=== PATIENT | female | born 1990 | race Caucasian/White ===

== ENCOUNTER 2020-04-11 19:46 | Emergency (ER) | payer OTHER, MEDICAID, SELFPAY ==
[2020-04-11 19:52] VITALS: BP 158/101; PULSE 92; RESP 18; TEMP 36.6; O2SAT 100; BMI 32.9
--- NOTE | 2020-04-11 20:03 | ED_ITS ---
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 Patient reports subjective fever and chills with occasional nausea and had 2 episodes of vomiting yesterday. Patient has been having epigastric discomfort on and off for a while. Patient reports nausea increases after eating. Patient reports foul-smelling belching associated with her abdominal discomfort. Patient has history of cholecystectomy in the past and had gastric ulcer during high school. Patient denies chest pain, breathing difficulty, known exposure to Covid. LMP 03/18/20. Complaint: tooth pain Related Data Previous Rx's Medication Instructions Recorded amoxicillin-pot clavulanate 1 tab PO BID 7 Days #14 tab 04/11/20 [Augmentin] ondansetron 4 mg PO BID-TID PRN #7 tab 04/11/20 Allergies Allergy/AdvReac Type Severity Reaction Status Date / Time No Known Drug Allergies Allergy Verified 04/11/20 19:52 Review of Systems <GRACE Gallegos - Last Filed: 04/11/20 22:17> Review of Systems Narrative: General: See HPI HEENT: See HPI Respiratory: Denies dyspnea, cough, wheezing, hemoptysis, sputum. Cardiovascular: Denies chest pain, palpitations, orthopnea, edema. Gastrointestinal: HPI Neurologic: Denies weakness, headache, numbness, change in speech, confusion, seizures, incoordination. Psychiatric: No concerning psychosocial issues. Patient History <GRACE Gallegos - Last Filed: 04/11/20 22:17> Surgical History History of ankle surgery (Acute) Hx of cholecystectomy (Acute) Social History Smoking Status: Current every day smoker Smoking Status: Current every day smoker Substance Use Type: heroin and IV drugs Exam <Connor [facility]GR[facility] Corrales - Last Filed: 04/11/20 22:17> Narrative Exam Narrative: GEN: Alert, oriented x 3, well appearing and nourished, and in no acute distress. Head: Normal cephalic, atraumatic. No scalp or temporal tenderness, palpable mass or rash. EYES: Pupils are equal, round, and reactive to light and accommodation. Extraocular muscles are intact bilaterally. There is no subconjunctival hemorrhage, exudate and sclera non-icteric. ENT: Bilateral auditory canals clear. Bilateral tympanic membranes mild erythematous. Hearing grossly intact. Nose without bleeding, purulent discharge or deviation. Facial sinuses nontender to palpate. Mucous membrane moist, no mucosal lesion. Tooth #32 and 18 fracture. Dental caries in tooth # 18. Throat without erythema, tonsillar hypertrophy or exudate. Uvula in midline, airway patent. Neck: Trachea in midline. No JVD. Anterior cervical lymphadenopathy. No masses or thyroid megaly. Supple, non-tender and no meningeal signs. CARDIAC: Normal regular rate and rhythm without murmurs, gallops, or rubs. No chest wall tenderness. No peripheral edema, cyanosis or pallor. Capillary re fill is less than 2 seconds. RESPIRATORY: Lungs are clear to auscultate bilaterally. No cough, wheezes, rales, or rhonchi. No stridor, respiratory distress, increase work of breathing, or accessary muscle used. ABD: Abdomen soft non-distended. Mild tenderness in epigastric region. No guarding or rebound tenderness to palpate. Bowel sounds are normal in all 4 quadrants. There is no palpable masses or organomegaly. EXT: Full painless ROM of all extremities with no loss of sensation, strength, effusion or edema. SKIN: Warm, dry, normal color for patient. No erythema, lesions or rash over visible areas. BACK: Nontender without deformity or crepitance. No flank tenderness. NEUROLOGICAL: Alert and oriented to place, time and person. Sensation and motor function intact bilaterally. No facial droops, dysphasia. PSYCHIATRIC: Good judgement and reason, without hallucinations, abnormal affect or abnormal behaviors during the examination. Patient is not suicidal. Initial Vital Signs Initial Vital Signs: Vital Signs Temperature 98 F 04/11/20 19:52 Pulse Rate 92 H 04/11/20 19:52 Respiratory Rate 18 04/11/20 19:52 Blood Pressure 158/101 H 04/11/20 19:52 Pulse Oximetry 100 04/11/20 19:52 <Arsh Euceda DO - Last Filed: 04/12/20 00:15> Initial Vital Signs Initial Vital Signs: Vital Signs Temperature 98 F 04/11/20 19:52 Pulse Rate 92 H 04/11/20 19:52 Respiratory Rate 18 04/11/20 19:52 Blood Pressure 158/101 H 04/11/20 19:52 Pulse Oximetry 100 04/11/20 19:52 Scores <GRACE Gallegos - Last Filed: 04/11/20 22:17> GCS [place] coma scale eye opening: Spontaneous [place] coma scale verbal response: Orientated [place] coma scale motor response: Obey commands [place] coma scale total score: 15 Course <Connor GRACE Lucio - Last Filed: 04/11/20 22:17> Orders Ordered: Discontinued Medications Acetaminophen (Tylenol) 650 mg PO NOW ONE Stop: 04/11/20 20:02 Last Admin: 04/11/20 20:17 Dose: 650 mg Documented by: JESIKA Amoxicillin/Clavulanate Potassium (Augmentin 875-125 Mg) 1 tab PO NOW ONE Stop: 04/11/20 20:02 Last Admin: 04/11/20 20:17 Dose: 1 tab Documented by: JESIKA Ondansetron HCl (Zofran Odt) 4 mg SL NOW ONE Stop: 04/11/20 20:02 Last Admin: 04/11/20 20:16 Dose: 4 mg Documented by: JESIKA Pantoprazole Sodium (Protonix) 20 mg PO NOW ONE Stop: 04/11/20 20:02 Last Admin: 04/11/20 20:17 Dose: 20 mg Documented by: JESIKA Vital Signs Vital signs: Vital Signs - 8 hr 04/11/20 19:52 04/11/20 20:55 04/11/20 20:56 Temperature 98 F Pulse Rate 92 H 91 H Respiratory Rate 18 Blood Pressure 158/101 H 117/64 Pulse Oximetry 100 100 100 <Arsh Euceda DO - Last Filed: 04/12/20 00:15> Orders Ordered: Discontinued Medications Acetaminophen (Tylenol) 650 mg PO NOW ONE Stop: 04/11/20 20:02 Last Admin: 04/11/20 20:17 Dose: 650 mg Documented by: JESIKA Amoxicillin/Clavulanate Potassium (Augmentin 875-125 Mg) 1 tab PO NOW ONE Stop: 04/11/20 20:02 Last Admin: 04/11/20 20:17 Dose: 1 tab Documented by: JESIKA Ondansetron HCl (Zofran Odt) 4 mg SL NOW ONE Stop: 04/11/20 20:02 Last Admin: 04/11/20 20:16 Dose: 4 mg Documented by: JESIKA Pantoprazole Sodium (Protonix) 20 mg PO NOW ONE Stop: 04/11/20 20:02 Last Admin: 04/11/20 20:17 Dose: 20 mg Documented by: JESIKA Vital Signs Vital signs: Vital Signs - 8 hr 04/11/20 19:52 04/11/20 20:55 04/11/20 20:56 Temperature 98 F Pulse Rate 92 H 91 H Respiratory Rate 18 Blood Pressure 158/101 H 117/64 Pulse Oximetry 100 100 100 MDM - Dental/Oral <Connor PersonSherineJesusGRACE lopez - Last Filed: 04/11/20 22:17> Differential Diagnosis Differential diagnosis: Likely dental caries, fracture of tooth and other (Otitis media, gastric ulcer, gastritis) Medical Records Attestation: I reviewed the patient's medical records. MDM Narrative Medical decision making narrative: This is a 29-year-old female who presents to ED with bilateral lower tooth molar fracture and pain with subjective chills and fever since last night. Patient reports bilateral inner ear pain and anterior cervical lymphadenopathy. Bilateral ear appears to be slightly erythematous without bulging. Patient is afebrile in ED with slight hypertension without tachypnea or tachycardia. Patient also reports occasional epigastric discomfort and nausea. Patient has history of cholecystectomy. Patient was treated with Augmentin, Zofran, pantoprazole in ED. advised continue with omeprazole or pantoprazole for next couple of weeks to see if this helps with pain. Patient discharged to home with Augmentin b.i.d. for 7 day course and advised to follow- up with dentist. Return precautions were discussed with patient and she verbalized understanding in agreement with the treatment plan. Discharge Plan Departure Patient Disposition: Home Clinical Impression: Dental caries Fracture of tooth Qualifiers: Encounter type: initial encounter Fracture type: closed Qualified Code(s): S02.5XXA - Fracture of tooth (traumatic), initial encounter for closed fracture Discharge Date/Time: 04/11/20 21:02 Instructions: Tooth Decay, Tooth Fracture Activity Restrictions/Additional Instructions: You have been diagnosed with [bilateral molar fracture, dental pain, also dental caries. You may have early your infection as well. You were treated with antibiotic medication Augmentin. Take Augmentin twice a day for next 7 days. First dose was given in ED. Please take Zofran as needed for nausea so you can hydrate herself. You can take [id number] Tylenol and or Motrin as needed for discomfort. Tylenol 650-1000 mg up to 3 to 4 times a day. Ibuprofen 400-6 00 mg up to 3 times a day as needed for pain with food to decrease GI irritation. Try [id number] omeprazole to help with stomach pain. Eat things easy to digest and to avoid spicy or oily foods, caffeine, and smoking.]. What to do: *Take your medications as directed. Augmentin and Zofran have been transmitted to [facility] in [place]. *Follow up with your primary care provider in 2-3 days, call for an appointment. Please follow-up with dentist. You can contact [facility] in [place] or in [place]. You can also seek care at dental school. Let them know you were seen in the ED and that we asked you to be seen in follow up. *Return to ED if you have any new, worsening, or concerning symptoms, such as [worsening pain, unable to tolerate fluids or medications, vomiting blood, chest pain, breathing difficulty, fever or any acute concerns]. Prescriptions: New amoxicillin-pot clavulanate [Augmentin] 875-125 mg tablet 1 tab PO BID 7 Days Qty: 14 RF: 0 ondansetron 4 mg tablet,disintegrating 4 mg PO BID-TID PRN (Reason: nausea and vomiting) Qty: 7 RF: 0 Referrals: [facility] [Outside] <Arsh Euceda DO - Last Filed: 04/12/20 00:15> Cosign ED Attending Jemature Attestation: I was immediately available in the department for consultation. This documentation has been reviewed and I agree with assessment and plan. Supervised by Arsh Euceda, DO
[2020-04-11] MEDS: ONDANSETRON 4 MG ODT SL (20:16)
[2020-04-11] MEDS: AMOXICILLIN/CLAV 875/125 MG 1 TAB PO (20:17)
[2020-04-11] MEDS: PANTOPRAZOLE 20 MG TABLET PO (20:17)
[2020-04-11] MEDS: ACETAMINOPHEN 325 MG TABLET 650 MG PO (20:17)
[2020-04-11 20:55] VITALS: O2SAT 100
[2020-04-11 20:56] VITALS: BP 117/64; PULSE 91; O2SAT 100
== END 2020-04-11 21:02 | disposition home or self-care (01) ==
PROVIDERS: Emergency Provider Nurse Practitioner Family
DX: S02.5XXA Fracture of tooth (traumatic), initial encounter for closed fracture (principal); K02.9 Dental caries, unspecified; R50.9 Fever, unspecified; R11.2 Nausea with vomiting, unspecified
CPT/HCPCS: 99283